=== PATIENT | female | born 1970 | race Caucasian/White ===

== ENCOUNTER 2017-04-11 16:22 | Emergency (ER) | payer OTHER ==
[~2017-04-11] VITALS: Ht 154.9 cm; Wt 64.0 kg
[2017-04-11 16:42] VITALS: Ht 154.9 cm; Wt 64.0 kg
[2017-04-11 22:54] VITALS: BP 115/68
[2017-04-13 09:02] LABS: RAPID PLASMA REAGIN Non Reactive (Non Reactive)
== END 2017-04-11 22:54 | disposition home or self-care (01) ==
LOC: ED 16:22
PROVIDERS: Emergency Medicine
DX: A59.01 Trichomonal vulvovaginitis (principal); K04.7 Periapical abscess without sinus; D25.9 Leiomyoma of uterus, unspecified
CPT/HCPCS: 87491; 87591